=== PATIENT | female | born 1995 | race Caucasian/White ===

== ENCOUNTER 2017-10-11 21:45 | Emergency (ER) | payer SELFPAY, OTHER | END 2017-10-12 02:34 | disposition home or self-care (01) | LOC: FTE 21:45 | DX: R07.89 Other chest pain (principal) | CPT/HCPCS: 71045; 93005; 99284-25 ==

== ENCOUNTER 2017-12-16 20:35 | Emergency (ER) | payer SELFPAY, OTHER ==
[2017-12-16] MEDS: ACETAMINOPHEN 500 MG TAB PO (21:35)
[2017-12-16] MEDS: DOXYCYCLINE 100 MG TAB PO (22:00)
== END 2017-12-16 22:48 | disposition home or self-care (01) ==
LOC: FTE 20:35
DX: J06.9 Acute upper respiratory infection, unspecified (principal)
CPT/HCPCS: 71045; 81025; 99283-25